=== PATIENT | female | born 1965 | race Asian ===

== ENCOUNTER → 2018-06-23 | Outpatient (CLI) | payer BC | END | disposition home or self-care (01) | LOC: CFH 13:20 | PROVIDERS: ATTEND Family Medicine | DX: Z12.31 Encounter for screening mammogram for malignant neoplasm of breast (principal) | CPT/HCPCS: 77067 ==

== ENCOUNTER → 2019-07-04 | Outpatient (CLI) | payer BC ==
[~2019-07-04] MED LIST: GADOTERATE 10 MMOL/20 ML VIAL ONE
== END | disposition home or self-care (01) ==
LOC: CFH 13:09
PROVIDERS: ATTEND Family Medicine
DX: G60.9 Hereditary and idiopathic neuropathy, unspecified (principal)
CPT/HCPCS: 70553; A9575

== ENCOUNTER 2019-07-27 13:26 | Outpatient (CLI) | payer BC | END 2019-07-27 23:59 | disposition home or self-care (01) | LOC: CFH 13:26 | PROVIDERS: ATTEND Family Medicine | DX: Z12.31 Encounter for screening mammogram for malignant neoplasm of breast (principal) | CPT/HCPCS: 77067 ==

== ENCOUNTER 2019-09-19 13:39 | Emergency (ER) | payer BC ==
[~2019-09-19] VITALS: Ht 175.3 cm; Wt 65.9 kg
--- NOTE | 2019-09-19 14:10 | NUR ---
This is a 54 y/o female who recently traveld to [facility] from 08/19/19-09/12/19. Pt reports she was not near the endemic areas and wore a N95 mask when traveling through the airports. Pt reports she has had low grade fever x 1 day. Pt reports coughs and sore throat for a few days now. Pt reports her symptoms began 1 week from arriving from [place]. Pt denies any severe sob or resp symptoms and wants to be responsibe and not spread the virus if she is contagious. Pt placed in reverse isolation room and paprs at door entrance. pt takes losartan for htn. call light in reach.
--- NOTE | 2019-09-19 15:06 | NUR ---
STREP AND FLU SAMPLES OBTAINED. PT PROVIDED COMMODE. PT IN NO DISTRESS. STATES HER THROAT IS WHAT BOTHERS HER THE MOST WITH AN OCCASIONAL COUGH
[2019-09-19 15:46] VITALS: BP 124/70
[2019-09-19 16:05] LABS: RAPID INFLUENZA A Negative (Negative); RAPID INFLUENZA B Negative (Negative)
--- NOTE | 2019-09-19 17:00 | NUR ---
PT PROVIDED HEALTH DEPARTMENT PHONE NUMBER AND SPEAKING WITH THEM ON HER CELL PHONE, DIRECTED BY INFECTIOUS DISEASE NURSE.
== END 2019-09-19 19:41 | disposition home or self-care (01) ==
LOC: ED 15:26
DX: J02.8 Acute pharyngitis due to other specified organisms (principal); B97.89 Other viral agents as the cause of diseases classified elsewhere
CPT/HCPCS: 87081; 87400; 87880; 99283